=== PATIENT | female | born 1960 | race African-American/Black ===

== ENCOUNTER 2016-10-06 10:49 | Emergency (ER) | payer OTHER ==
[~2016-10-06] VITALS: Ht 157.5 cm; Wt 63.5 kg
[2016-10-06] MEDS ORDERED: APIDRA SOL100 UNIT/1 SQ (10:54)
[2016-10-06] MEDS ORDERED: LANTUS SUBQ (10:54)
[2016-10-06] MEDS ORDERED: MOBIC15 MG PO (12:14)
[2016-10-06] MEDS ORDERED: NORCO 5-325 TA1 EACH PO (12:18)
[2016-10-06 12:31] VITALS: BP 164/106
== END 2016-10-06 12:45 | disposition home or self-care (01) ==
LOC: ER 10:49
DX: M25.552 Pain in left hip (principal); E11.9 Type 2 diabetes mellitus without complications; Z90.711 Acquired absence of uterus with remaining cervical stump; Z91.041 Radiographic dye allergy status; Z91.013 Allergy to seafood; Z79.4 Long term (current) use of insulin; W10.9XXA Fall (on) (from) unspecified stairs and steps, initial encounter; Y93.89 Activity, other specified; Y92.89 Other specified places as the place of occurrence of the external cause; Y99.8 Other external cause status